=== PATIENT | female | born 1985 | race Caucasian/White ===

== ENCOUNTER 2017-09-30 01:37 | Outpatient (CLI) | payer BC | END 2017-09-30 01:38 | disposition critical access hospital (66) | LOC: EMS 01:37 | PROVIDERS: ATTEND Surgery | DX: O72.2 Delayed and secondary postpartum hemorrhage (principal) | CPT/HCPCS: A0425; A0429 ==

== ENCOUNTER 2017-09-30 02:10 | Day surgery (SDC) | payer BC ==
[2017-09-30 03:29] LABS: BASOPHILS % (AUTO) 0.4 %; EOSINOPHILS # (AUTO) 0.1 10^3/uL (0.0-0.7); EOSINOPHILS % (AUTO) 1.2 %; LYMPHOCYTES # (AUTO) 1.3 10^3/uL (1.5-3.5); LYMPHOCYTES % (AUTO) 14.4 %; MEAN CORPUSCULAR HEMOGLOBIN 30.5 pg (27.0-31.0); MEAN CORPUSCULAR HGB CONC 34.5 g/dL (32.0-36.0); MEAN CORPUSCULAR VOLUME 88.6 fL (81.0-99.0); MEAN PLATELET VOLUME 7.6 fL (7.9-10.8); MONOCYTES # (AUTO) 0.5 10^3/uL (0.0-1.0); NEUTROPHILS # (AUTO) 7.3 10^3/uL (1.5-6.6); PLT - PLATELET COUNT 391 10^3/uL (130-450); RED BLOOD COUNT 3.27 10^6/uL (4.20-5.40); RED CELL DISTRIBUTION WIDTH 16.4 % (12.0-15.0); WHITE BLOOD COUNT 9.3 x10^3/uL (4.8-10.8)
[2017-09-30 03:40] LABS: ALBUMIN 3.1 g/dL (3.2-5.5); ALBUMIN/GLOBULIN RATIO 0.9 (1.0-2.2); BILIRUBIN,TOTAL 0.4 mg/dL (0.2-1.0); CALCIUM 8.6 mg/dL (8.5-10.3); CREATININE 0.6 mg/dL (0.4-1.0); TOTAL PROTEIN 6.5 g/dL (6.7-8.2)
--- NOTE | 2017-09-30 03:49 | ED Physician Documentation ---
PD HPI FEMALE - Stated complaint Stated Complaint: FEM - Chief complaint Chief Complaint: General - History obtained from History obtained from: Patient, Family - History of Present Illness Timing - onset: Today Timing - details: Abrupt onset, Still present Associated symptoms: Pelvic pain, Vaginal bleeding Similar symptoms before: Work up / diagnostics Recently seen: Admitted - Additional information Additional information: patient is a 32 year old female who is presenting to the emergency department for vaginal bleeding. patient states that she had a child via vaginal delivery two weeks prior. At that time she had uterine prolapse and excessive bleeding. patient required 4 units blood transfusion. Patient states she went home after three days and was doing better but developed vaginal bleeding and clots so she came in for evaluation. 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 - Allergies Allergies/Adverse Reactions: Allergies Allergy/AdvReac Type Severity Reaction Status Date / Time No Known Drug Allergies Allergy Verified 09/30/17 02:29 - Social History Does the pt smoke?: No Smoking Status: Never smoker Does the pt drink ETOH?: Yes Does the pt have substance abuse?: No - Immunizations Immunizations are current?: Yes PD ED PE NORMAL - Vitals Vital signs reviewed: Yes - General General: Alert and oriented X 3, No acute distress - HEENT HEENT: Atraumatic - Cardiac Cardiac: RRR - Respiratory Respiratory: No respiratory distress - Abdomen Abdomen: Soft - Female Female : Deferred - Derm Derm: Normal color, Warm and dry - Extremities Extremities: No deformity - Neuro Neuro: Alert and oriented X 3 Eye Opening: Spontaneous Results - Vitals Vitals: Vital Signs - 24 hr 09/30/17 09/30/17 09/30/17 02:20 03:25 04:48 Heart Rate 89 86 89 Respiratory 21 21 16 Rate Blood Pressure 130/86 H 110/77 111/72 O2 Saturation 97 99 98 Oxygen O2 Source Room air - Labs Labs: Laboratory Tests 09/30/17 09/30/17 03:15 03:15 WBC 9.3 RBC 3.27 L Hgb 10.0 L Hct 29.0 L MCV 88.6 MCH 30.5 MCHC 34.5 RDW 16.4 H Plt Count 391 MPV 7.6 L Neut # (Auto) 7.3 H Lymph # (Auto) 1.3 L [place] # (Auto) 0.5 Eos # (Auto) 0.1 Baso # (Auto) 0.0 Absolute Nucleated RBC 0.00 Nucleated RBC % 0.0 Sodium 138 Potassium 3.7 Chloride 105 Carbon Dioxide 24 Anion Gap 9.0 BUN 11 Creatinine 0.6 Estimated GFR (MDRD) 116 Glucose 103 H Calcium 8.6 Total Bilirubin 0.4 AST 21 ALT 17 Alkaline Phosphatase 76 Total Protein 6.5 L Albumin 3.1 L Globulin 3.4 Albumin/Globulin Ratio 0.9 L Lipase 25 - Rads (name of study) pelvic ultrasound Radiology: Final report received (findings consistent ) PD MEDICAL DECISION MAKING - ED course Complexity details: reviewed old records, reviewed results, re-evaluated patient , considered differential, d/w patient, d/w collection systems consultant ED course: Patient was seen and examined at bedside. labs were drawn and imaging was ordered. when patient returned from imaging results were reviewed. patient was found to have retained products of conception. Dr. Jennings, program consultant OB was consulted and the case was discussed with her. She agreed to taking the patient to the OR. - Sepsis Event Vital Signs: Vital Signs - 24 hr 09/30/17 09/30/17 09/30/17 02:20 03:25 04:48 Heart Rate 89 86 89 Respiratory 21 21 16 Rate Blood Pressure 130/86 H 110/77 111/72 O2 Saturation 97 99 98 Oxygen O2 Source Room air Departure - Departure Disposition: ED Transfer to [facility] Clinical Impression: Retained products of conception Condition: Stable
--- NOTE | 2017-09-30 04:06 | Ultrasound Report ---
Procedure Date: 09/30/2017 Accession Number: [id number] / [id number] Procedure: US - Pelvic Complete CPT Code: FULL RESULT: EXAM: PELVIC ULTRASOUND EXAM DATE: 09/30/2017 03:37 AM. CLINICAL HISTORY: . Retained products of conception. COMPARISON: None. TECHNIQUE: Realtime transabdominal pelvic scan performed with static image documentation. FINDINGS: Uterus: 10.2 x 6.9 x 8.1 cm, volume 301 cc. Retroverted position. Enlarged uterus. Masses: None. Endometrium: Heterogeneous endometrial contents measuring approximately 5 x 3 cm. There is some vascular flow which may represent retained trophoblastic tissue. Cervix: Unremarkable. Right Ovary: 2.1 x 1.9 x 2.0 cm, volume 4.1 cc. Normal echotexture and blood flow. Left Ovary: 2.8 x 1.4 x 1.3 cm, volume 2.7 cc. Normal echotexture and blood flow. Free Fluid: None. Other: None. IMPRESSION: 1. Enlarged uterus measuring 301 cc. 2. Heterogeneous endometrial contents measuring approximately 5 x 3 cm with some areas of vascularity which may represent retained trophoblastic tissue. 3. Ovaries appear normal. RADIA
[2017-09-30] MEDS ORDERED: SODIUM CHLORIDE 0.9% 1,000 ML IV ONE (04:29)
--- NOTE | 2017-09-30 05:15 | ANESTHESIA ---
Pre-Anesthesia VS, & Labs - Diagnosis Retained products of conception - Procedure D&C Vital Signs: Temp Pulse Resp BP Pulse Ox 89 16 111/72 98 09/30/17 04:48 09/30/17 04:48 09/30/17 04:48 09/30/17 04:48 Height 5 ft 7 in Weight (kg) 68.039 kg Body Mass Index 23.5 - NPO >8 hours - Is Patient ?: Not Applicable (s/p post x2 weeks) - Lab Results Fish Bones: 09/30/17 03:15 09/30/17 03:15 Home Medications and Allergies Home Medications: Ambulatory Orders Medication Instructions Recorded Confirmed Evening [place] Oil 09/30/17 Pnv No.122/Iron/Folic Acid 1 each PO 09/30/17 [ Multi Tablet] Sennosides/Docusate Sodium [Stool 1 PO DAILY 09/30/17 Softener-Laxative Tablet] Allergies/Adverse Reactions: Allergies Allergy/AdvReac Type Severity Reaction Status Date / Time No Known Drug Allergies Allergy Verified 09/30/17 02:29 Anes History & Medical History - Anesthetic History Anesthesia Complications: reports: Post-Operative Nausea/Vomiting Family history of Anesthesia Complications: Denies Family history of Malignant Hyperthermia: Denies - Medical History Cardiovascular: reports: None Pulmonary: reports: None Gastrointestinal: reports: None Urinary: reports: None Neuro: reports: None Musculoskeletal: reports: None Endocrine/Autoimmune: reports: None Blood Disorders: reports: None Smoking Status: Never smoker Psychosocial: reports: No issues indicated - Surgical History Gynecologic: Other (uterine inversion) Exam General: Alert, Oriented x3, Cooperative, No acute distress Dental: WNL Mouth Openin Fingerbreadth Neck Mobility: Normal Mallampati classification: I Thyromental Distance: 4-6 cm Respiratory: Lungs clear, Normal breath sounds, No respiratory distress, No accessory muscle use Cardiovascular: Regular rate, Normal S1, Normal S2, No murmurs, Other ( tachycardic) Mental/Cognitive Status: Alert/Oriented X3, Normal for patient Cognitive Status: Within normal limits Plan Anesthesia Type: General Consent for Procedure(s) Verified and Reviewed: Yes Code Status: Attempt Resuscitation ASA classification: 1-Healthy patient Is this case an emergency?: Yes
[2017-09-30] MEDS ORDERED: ceFAZolin 2 GM/50 ML 2 GM/50 ML BAG IV ONE (05:40)
[2017-09-30] MEDS ORDERED: SCOPOLAMINE PATCH TOP ONE (05:40)
[2017-09-30] MEDS ORDERED: fentaNYL 100 MCG/2 ML VIAL IVP ONE ×2 (06:00→06:30)
[2017-09-30] MEDS ORDERED: ROCURONIUM 50 MG/5 ML VIAL IVP ONE ×2 (06:00→06:30)
[2017-09-30] MEDS ORDERED: KETOROLAC 30 MG/ML VIAL IVP ONE ×2 (06:00→06:30)
[2017-09-30] MEDS ORDERED: GLYCOPYRROLATE 1 MG/5 ML VIAL IVP ONE (06:00)
[2017-09-30] MEDS ORDERED: MIDAZOLAM 2 MG/2 ML VIAL IVP ONE ×2 (06:00→06:30)
[2017-09-30] MEDS ORDERED: PROPOFOL 200 MG/20 ML VIAL IVP ONE ×2 (06:00→06:30)
[2017-09-30] MEDS ORDERED: NEOSTIGMINE 1 MG/1 ML 10 ML MDV IVP ONE (06:00)
--- NOTE | 2017-09-30 06:03 | PREOP HISTORY & PHYSICAL ---
DATE OF SERVICE: 09/30/2017 Physician: Clarita Jennings DO FACOG IDENTIFICATION: This is a 32-year-old G2, P1-0-1-1, status post spontaneous vaginal delivery on 09/16/2017. HISTORY OF PRESENT ILLNESS: [facility] Loren. Patient stated that her was remarkable for having elevated bile acids of 10.5 at 36 weeks' gestation but eventually was told that she did not have cholestasis of . In any event, she was induced at 41 weeks 5 days for late term. She was given a transcervical Yeung balloon for cervical ripening and promptly dilated to 6 cm. She was given Pitocin and, within 24 hours, she delivered her daughter. She did not have an epidural, and the synthetic cloth binding cutter there repaired some tears. As she stated, she tore from her "top and bottom." When it came to delivery of the placenta, she stated the synthetic cloth binding cutter tugged on the placenta and then eventually tried to do a manual extraction. In any event, uterine inversion occurred, and she was taken to the operating room. The patient's understanding was that they reduced the uterus and did not do any surgery per se. She received two units of O blood in the operating room and after her reduction also received another two units of A positive blood for a total of four units. The patient was discharged home with Motrin 600 mg as well as Percocet 5 mg. The patient stated that she was doing well until yesterday, when she passed a "pinky sized" clot that had some tissue-looking component to it. She then got out of bed, when she gushed a significant amount of blood all the way to the bathroom. She also states that she soaked her pad on the bed. The bleeding worsened. She denied any fevers, chills, or difficulty with urination. The patient is currently here with her significant other. He is currently holding her daughter. I was called again by Dr. Delcid to see this patient. Pelvic ultrasound revealed the uterus measuring 10.2 x 6.9 x 8.1 cm, a volume of 301 mL, retroverted. Endometrium shows a heterogeneous endometrial contents measuring approximately 5 x 3 cm. There is some vascular flow, which may represent retained trophoblastic tissue. Adnexa are all within normal limits, and there is no free fluid. Her hemoglobin is reassuring at 10.0. I discussed with the patient, given her clinical situation, that we proceed to a suction dilatation and curettage. I did have discussion with the patient regarding the risks, benefits, alternatives, indications, and expectations of a suction dilatation and curettage. Included in our discussion was the risk of hemorrhage, infection, and in particularly this case, uterine perforation. After all of her questions were answered to her satisfaction, she verbalized her desire to proceed with surgery. Consent forms have been signed. PAST MEDICAL HISTORY: None. She denies hypertension, diabetes, or thyroid disorder. PAST SURGICAL HISTORY 1. [place] teeth extraction. 2. Reduction of uterine inversion on 09/16/2017. ALLERGIES: NO KNOWN DRUG ALLERGIES. MEDICATIONS: vitamins and other supplements. SOCIAL HISTORY: She denies any current use of tobacco, alcohol, or illicit drug use. 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 Again, she uses [facility] in [place], [place] as her pharmacy. PAST OBSTETRICAL HISTORY 1. One spontaneous at 5 weeks' gestation. 2. One spontaneous vaginal delivery on 09/16/2017 with induction secondary to late term. She is currently . PAST GYNECOLOGICAL HISTORY: She had a colposcopy 10 years ago but since then has spontaneously resolved. She has a history of HSV but denies any outbreaks. FAMILY HISTORY: There is no female carcinoma. REVIEW OF SYSTEMS: Negative unless otherwise stated. PHYSICAL EXAMINATION VITAL SIGNS: Pulse 86, respirations 21, BP 110/77, pulse oximetry 99. She is currently afebrile. GENERAL: She is a well-developed, well-nourished female, in no apparent distress. She is alert and oriented x3. HEENT: Within normal limits. HEART: Rate regular. No murmurs or rubs. LUNGS: Lungs are clear to auscultation bilaterally. ABDOMEN: Shows mild tenderness to palpation, but no peritoneal signs. LABORATORY: Data show white count 9.3, H and H of 10.0 and 29.0, platelets 391. Sodium 138, potassium 3.7, chloride 105, carbon dioxide 24, BUN 11, creatinine 0.6, glucose 103. AST 21, ALT 17, albumin 3.1. Lipase 25. ASSESSMENT 1. A 32-year-old G2, P1-0-1-1. 2. Status post spontaneous vaginal delivery on 09/16/2017. 3. Status post reduction of uterine inversion on 09/16/2017. 4. Status post total of four units of packed red blood cells transfused. 5. Retained products of conception. PLAN 1. We will proceed to a suction dilatation and curettage. 2. Anticipate giving the patient Ancef 2 grams IV for endometritis prophylaxis. 3. Anticipate the patient also to home with a prescription of Methergine and Vicodin. I have discussed with her maximizing her pain control with Motrin 800 mg one tablet p.o. q.6 h. Ideally, she should use Tylenol 1000 mg q.8 h. I will give her a prescription of Vicodin; should she take Vicodin, she should decrease her other Tylenol since the Vicodin does contain Tylenol. 4. I anticipate seeing the patient at [facility] for a routine postoperative check in two weeks. TD: 09/30/2017 05:35 MIRA
[2017-09-30] MEDS ORDERED: LACTATED RINGERS 1,000 ML IV ONE ×2 (06:13)
[2017-09-30] MEDS ORDERED: miSOPROStol 200 MCG TABLET PR ONE (06:18)
[2017-09-30] MEDS ORDERED: DEXAMETHASONE 4 MG/ML VIAL IVP ONE (06:30)
[2017-09-30] MEDS ORDERED: ACETAMINOPHEN 1,000 MG/100 ML 100 ML IV ONE (06:30)
[2017-09-30] MEDS ORDERED: ONDANSETRON 4 MG/2 ML VIAL IVP ONE (06:30)
[2017-09-30] MEDS ORDERED: miSOPROStol 200 MCG TABLET PO ONE (06:30)
[2017-09-30] MEDS ORDERED: ONDANSETRON 4 MG/2 ML VIAL ONE (06:35)
--- NOTE | 2017-09-30 06:39 | POST OP PROGRESS NOTE ---
Subjective - Other Other Information/Narrative: Date of Operation: 09/30/2017 Surgeon: Clarita Jennings DO FACOG Rug Inspector Helper: None Thermal Cutting Machine Operator: Martha Mravin CRNA Anesthesia: GET Pre-Op Dx: 1. 32 yo S/p 09/16/2017 and reduction of uterine inversion 2. Retained products of conception Post-Op Dx: 1. 32 yo S/p 09/16/2017 and reduction of uterine inversion 2. Retained products of conception Procedure: Suction dilation and curettage Findings: Products of conception Specimens: Endometrial curettings Drains: None EBL: 600 mL Complications: None OP Note Dictation #: [id number] H&P Dictation #: [id number]
[2017-09-30 07:14] VITALS: BP 108/60
--- NOTE | 2017-09-30 10:01 | OPERATIVE REPORT ---
DATE OF OPERATION: 09/30/2017 SURGEON: Clarita Jennings DO, FACOG REMOTE ENCODING OPERATIONS SUPERVISOR: None. TURNING LATHE TENDER: Martha Marvin CRNA ANESTHESIA: General endotracheal tube. PREOPERATIVE DIAGNOSES 1. A 32-year-old G2, P1-0-1-1, status post 09/16/2017 spontaneous vaginal delivery and reduction of uterine inversion. 2. Retained products of conception. POSTOPERATIVE DIAGNOSES 1. A 32-year-old G2, P1-0-1-1, status post 09/16/2017 spontaneous vaginal delivery and reduction of uterine inversion. 2. Retained products of conception. PROCEDURE: Suction dilatation and curettage. FINDINGS: Products of conception as well as a Monocryl suture on the medial labia minora at 11 o'clock as well as a Vicryl suture at 6 o'clock. Normally involuting uterus. Positive products of conception on suction dilatation, and curettage. PROCEDURE: Suction dilatation and curettage. FINDINGS: Products of conception and normal changes. SPECIMENS: Endometrial curettings. DRAINS: None. ESTIMATED BLOOD LOSS: 600 mL COMPLICATIONS: None. HISTORY OF PRESENT ILLNESS: She is a patient of [facility] who delivered a 41 and 5/7-week intrauterine on 09/16/2017. She was induced for late term at 41 weeks and 5 days. She received a transcervical Yeung balloon ripening and then Pitocin. She delivered within 24 hours and went without an epidural for pain control. The patient reports she had some tearing. The placenta sounds like it was difficult to deliver and the lidar scientist pulled on the umbilical cord. Unfortunately, there was a uterine inversion in which she and had to undergo a uterine reduction in the operating room. She does not recall being told of any giana surgery, per se, on the uterus or abdominal wall. She reports she was given 2 units of O blood in the operating room and then 2 units of A-positive during her postoperative period. The patient recently started having increased vaginal bleeding. It is described as bright red blood and a large amount of blood having passed. She passed a pinky-sized amount of tissue. She denies any fevers, chills, or difficulty with urination. Workup revealed she had a stable hemoglobin at 10.0. Ultrasound, however, revealed a 5-cm collection of what appeared to be products of conception. Given the patient's clinical picture, I recommended her to undergo a suction dilatation and curettage for retained products of conception. I discussed with the patient the risks, benefits, alternatives, indications, and expectations of a suction dilatation and curettage. Included in our discussion was the risk of hemorrhage, infection, and uterine perforation. After all of the patient's questions were answered to her satisfaction, she verbalized her desire to proceed with surgery. Consent forms have been signed. OPERATION IN DETAIL: The patient was identified, consented, and taken to the operating room where IV access was already in place. She was then given sequential compression devices, which were placed on her lower extremities and turned on. She was then given satisfactory general endotracheal tube anesthesia as per Martha Marvin. She was given 2 grams of Ancef IV for prophylaxis of postoperative endometritis. The patient was prepped and draped in normal sterile fashion in the lithotomy position using the [place] stirrups. Timeout was performed, which correctly identified the patient, site of procedure, and the procedure itself. An open-sided speculum was placed in the vagina. A single-tooth tenaculum was placed on the anterior lip of the cervix. The cervix was dilated to 9 mm. A curved, 9 mm, rigid suction curette was then used to curette the endometrium. Products of conception were seen. The curettage continued until a satisfactory uterine cri was palpated throughout the endometrium and no bleeding was noted from the cervix. It is noted that 2 suction traps were needed to be used for this procedure. Closer inspection of the vulva revealed a single Monocryl stitch at the 11 o'clock location on the vulva. There was also an 0 Vicryl suture at the 6 o'clock position of the introitus. At the conclusion of the case, 800 mcg of Cytotec was placed per rectum in order to help maintain hemostasis. The patient tolerated the procedure well and was taken back to the recovery room in stable condition. We will go ahead and recheck her hemoglobin and hematocrit given her large EBL. She will be discharged home later today after postoperative criteria have been met. The patient will be going home with prescriptions of Methergine x2 days as well as Vicodin and Motrin. Written instructions for taking the Motrin, Tylenol, and Vicodin have been written for her. She will be seen at [facility] [place] [facility] in 2 weeks for routine postoperative examination. TD: 09/30/2017 06:50 MTDMaryana
== END 2017-09-30 05:09 | disposition home or self-care (01) ==
LOC: EDUNIT# → ED 02:10 → SDS 05:08
PROVIDERS: ATTEND Obstetrics & Gynecology
PROC: 10D17ZZ Extraction of Products of Conception, Retained, Via Natural or Artificial Opening (ICD-10-PCS; principal; 2017-09-30 05:45)
DX: O72.2 Delayed and secondary postpartum hemorrhage (principal); Z86.19 Personal history of other infectious and parasitic diseases
CPT/HCPCS: 36415; 59160; 76856; 80053; 83690; 85014; 85018; 85025; 86850; 86900; 86901; 99283; 99284; A9270; J0131; J0690; J3490; J7120

== ENCOUNTER 2018-12-31 07:15 | Emergency (ER) | payer BC ==
[2018-12-31 07:25] VITALS: BP 119/83
[2018-12-31] MEDS ORDERED: DEXAMETHASONE 10 MG/ML VIAL PO STA (10:03)
[2018-12-31] MEDS ORDERED: CHERRY SYRUP 10 ML UDC PO ONE (10:03)
--- NOTE | 2018-12-31 10:06 | ED Physician Documentation ---
PD HPI URI - Stated complaint Stated Complaint: FLU SYMPTOMS - Chief complaint Chief Complaint: Fever - History obtained from History obtained from: Patient - History of Present Illness Timing - onset: How many weeks ago (1) Timing duration: Weeks Timing details: Gradual onset, Still present Associated symptoms: Fever, Chills, Ear pain, Nasal congestion, Rhinorrhea, Sore throat, Dry cough, Other (loss of voice and conjunctivitis) Contributing factors: Sick contact (daughter sick with similar has responded to amox for OM) Improves by: Rest, Medication, Other (hot shower for the sinuses) Worsened by: Activity Similar symptoms before: Has not had sx before Recently seen: Not recently seen - Additional information Additional information: 33-year-old female mother of a young daughter has developed cough and congestion similar to her daughter her daughter is been diagnosed with right otitis and is improved after amoxicillin. She improved rapidly after starting the antibiotic. The patient has developed cough congestion she is lost her voice she is developed conjunctivitis this morning she had to get into the shower to get her eyes open. They were crusted shut. Review of Systems Constitutional: reports: Fever Eyes: reports: Discharge, Irritation. denies: Decreased vision Ears: reports: Ear pain Nose: reports: Rhinorrhea / runny nose, Congestion Throat: reports: Sore throat Cardiac: denies: Chest pain / pressure, Palpitations Respiratory: reports: Cough. denies: Dyspnea GI: reports: Nausea. 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 - Present Medications Home Medications: Ambulatory Orders Medication Instructions Recorded Confirmed Evening [place] Oil 09/30/17 No122/Iron/Folic Acid 1 each PO 09/30/17 [ Multi Tablet] Sennosides/Docusate Sodium [Stool 1 PO DAILY 09/30/17 Softener-Laxative Tablet] Amox/Clav 875/125 [Augmentin] 1 each PO Q12H #20 tablet 12/31/18 - Allergies Allergies/Adverse Reactions: Allergies Allergy/AdvReac Type Severity Reaction Status Date / Time No Known Drug Allergies Allergy Verified 09/30/17 02:29 - Social History Does the pt smoke?: No Smoking Status: Never smoker Does the pt drink ETOH?: Yes Does the pt have substance abuse?: No - Immunizations Immunizations are current?: Yes PD ED PE NORMAL - Vitals Vital signs reviewed: Yes (hypertensive mild ) - General General: Alert and oriented X 3, No acute distress, Well developed/nourished - HEENT HEENT: Atraumatic, PERRL, EOMI, Pharynx benign, Dentition benign, Other (There is injection to the sclera bilaterally and there is inflamation to the left TM with distortion of the landmarks. ) - Neck Neck: Supple, no meningeal sign, No bony TTP, Other (shoddy adenopathy bilaterally ) - Cardiac Cardiac: RRR, No murmur - Respiratory Respiratory: No respiratory distress, Clear bilaterally - Abdomen Abdomen: Soft, Non tender, Non distended - Back Back: No CVA TTP, No spinal TTP - Derm Derm: Normal color, Warm and dry, No rash - Extremities Extremities: No deformity, No edema - Neuro Neuro: Alert and oriented X 3, board hammer operator 2-12 intact, No motor deficit, No sensory deficit, Normal speech Eye Opening: Spontaneous Motor: Obeys Commands Verbal: Oriented GCS Score: 15 - Psych Psych: Normal mood, Normal affect Results - Vitals Vitals: Vital Signs - 24 hr 12/31/18 07:21 Temperature 36.7 C Heart Rate 98 Respiratory 17 Rate Blood Pressure 119/83 H O2 Saturation 100 Oxygen O2 Source Room air - Labs Labs: Laboratory Tests 12/31/18 12/31/18 09:37 09:37 Influenza A (Rapid) Negative Influenza B (Rapid) Negative Group A Strep Rapid Negative PD MEDICAL DECISION MAKING - ED course Complexity details: reviewed results, re-evaluated patient, considered differential, d/w patient ED course: 33-year-old female with cough and congestion has otitis on exam she has a negative rapid strep and influenza. She is treated for otitis with dexamethasone 10 mg orally here and we will place her on some Augmentin. Departure - Departure Disposition: 01 Home, Self Care Clinical Impression: Viral URI Otitis media Qualifiers: Otitis media type: suppurative Chronicity: acute Laterality: left Recurrence: non-recurrent Spontaneous tympanic membrane rupture: without spontaneous rupture Qualified Code(s): H66.002 - Acute suppurative otitis media without spontaneous rupture of ear drum, left ear Condition: Stable Instructions: ED Otitis Media Acute Adult, ED Viral Syndrome Follow-Up: [facility] [Provider Group] Prescriptions: Amox/Clav 875/125 [Augmentin] 1 each PO Q12H #20 tablet
== END 2018-12-31 10:15 | disposition home or self-care (01) ==
LOC: ED 07:15
DX: J06.9 Acute upper respiratory infection, unspecified (principal); H66.002 Acute suppurative otitis media without spontaneous rupture of ear drum, left ear
CPT/HCPCS: 87070; 87077; 87275; 87276; 87430; 99283; 99284; A9270

== ENCOUNTER 2019-10-30 07:14 | Outpatient (CLI) | payer BC ==
--- NOTE | 2019-10-30 10:25 | Ultrasound Report ---
PROCEDURE: OB Detailed Eval INDICATIONS: SUPERVISION OF NORMAL OUTSIDE/PRIOR DATING DATA: Last menstrual period (LMP): 06/16/2019. LMP-based estimated date of delivery (JESUS): 03/22/2020. First dating scan (date and location): 07/28/2019. Estimated date of delivery (JESUS) from first dating scan: Unknown. TECHNIQUE: Real-time scanning was performed of the fetus, with image documentation and biometric measurements. COMPARISON: None. FINDINGS: General: A single living intrauterine gestation is present. Presentation: Breech Placenta: Placental position is posterior, without previa. Amniotic fluid index: 14.1 cm, normal for gestational age. heart rate: 136 beats per minute. Maternal cervical canal: 4.0 cm long; normal length is 2.5 cm or more. biometrics: Biparietal diameter: 4.16 cm, corresponding to gestational age of 18 weeks 4 days Head circumference: 15.39 cm, corresponding to gestational age of 18 weeks 3 days Abdominal circumference: 14.01 cm, corresponding to a gestational age of 19 weeks 3 days Femur length: 2.89 cm, corresponding to a gestational age of 18 weeks 6 days Estimated gestational age from initial scan: not applicable. Composite gestational age from present scan: 18 weeks 6 days Estimated weight: 273 g Anatomic survey: Neuro: Ventricles are normal at less than 10 mm. Cisterna magna is normal at 3-11 mm. Cerebellum i s normal in size and morphology. Nuchal skin fold: Normal at less than 6 mm between 14 and 20 weeks gestational age. Face: Nose and lips, facial profile are normal. Spine: No evidence for spina bifida. Heart: 4-chambered heart is present, with normal ventricular outflow tracts. Diaphragm: Diaphragm is intact. Stomach: Left-sided stomach is present. Kidneys: No hydronephrosis. Normal is less than 5 mm in 2nd trimester, less than 7 mm in 3rd trimester. Cord: 3 vessel cord has orthotopic insertion. Bladder: Normal in size. Extremities: All 4 extremities are visualized. IMPRESSION: Normal anatomy scan. Resolution of small subchorionic hemorrhage seen on the prior study. Reviewed by: Yakov Tavares MD on 10/30/2019 10:24 AM PDT Approved by: Yakov Tavares MD on 10/30/2019 10:24 AM PDT Station ID: [id number]
== END 2019-10-30 07:15 | disposition home or self-care (01) ==
LOC: DI 07:14
PROVIDERS: ATTEND Obstetrics & Gynecology
DX: Z34.80 Encounter for supervision of other normal pregnancy, unspecified trimester (principal)
CPT/HCPCS: 76811

== ENCOUNTER 2020-02-05 15:21 | Outpatient (CLI) | payer BC ==
[2020-02-05 15:54] LABS: ALBUMIN 3.5 g/dL (3.2-5.5); ALBUMIN/GLOBULIN RATIO 1.1 (1.0-2.2); ALKALINE PHOSPHATASE 97 IU/L (42-121); ALT ALANINE AMINOTRANSFERASE 13 IU/L (10-60); AST ASPARTATE AMINOTRANSFERASE 20 IU/L (10-42); BILIRUBIN,TOTAL 0.6 mg/dL (0.2-1.0); BUN - BLOOD UREA NITROGEN 7 mg/dL (6-20); CALCIUM 8.9 mg/dL (8.5-10.3); CARBON DIOXIDE - CO2 21 mmol/L (21-32); CHLORIDE 101 mmol/L (101-111); CREATININE 0.4 mg/dL (0.4-1.0); GLUCOSE 85 mg/dL (70-100); SODIUM 134 mmol/L (135-145); TOTAL PROTEIN 6.7 g/dL (6.7-8.2)
[2020-02-05 16:02] LABS: BILIRUBIN,DIRECT < 0.1 mg/dL (0.1-0.5)
== END 2020-02-05 15:22 | disposition home or self-care (01) ==
LOC: LAB 15:21
PROVIDERS: ATTEND Midwife
DX: O26.899 Other specified pregnancy related conditions, unspecified trimester (principal)
CPT/HCPCS: 36415; 80053; 82239; 82248

== ENCOUNTER 2020-02-05 15:46 | Outpatient (CLI) | payer BC ==
--- NOTE | 2020-02-06 13:14 | Ultrasound Report ---
PROCEDURE: Abdomen Limited INDICATIONS: WITH RUQ PAIN TECHNIQUE: Real-time focused scanning was performed of the abdomen, with image documentation. COMPARISON: FINDINGS: Limited study at clinician request. The liver is normal in size and echotexture. Normal di rection of portal vein flow is documented. The gallbladder appears normal as do the bile ducts. The p ancreas could not be seen due to bowel gas. Right kidney is normal in size and free of hydronephrosis and nephrolithiasis. Viable fetus identified with heart rate 131 bpm. IMPRESSION: Viable intrauterine gestation. Source of right upper quadrant pain is not found. Reviewed by: Aiden Turner MD on 02/06/2020 1:12 PM PST Approved by: Aiden Turner MD on 02/06/2020 1:12 PM PST Station ID: [id number]
== END 2020-02-05 15:47 | disposition home or self-care (01) ==
LOC: DI 15:46
PROVIDERS: ATTEND Midwife
DX: O99.891 Other specified diseases and conditions complicating pregnancy (principal); R10.11 Right upper quadrant pain

== ENCOUNTER 2020-03-06 09:07 | Outpatient (CLI) | payer BC ==
[2020-03-06] MEDS ORDERED: SODIUM CHLORIDE FLUSH 0.9% 10 ML SYRINGE IVP PRN ×2 (09:18→10:06)
[2020-03-06 09:43] VITALS: BP 131/77
[2020-03-06] MEDS ORDERED: ONDANSETRON 4 MG/2 ML VIAL IVP ONE (10:06)
[2020-03-06] MEDS ORDERED: TERBUTALINE 1 MG/ML VIAL SUBQ ONE (10:06)
[2020-03-06] MEDS ORDERED: MINERAL OIL LIGHT 10 ML MC ONE (10:09)
--- NOTE | 2020-03-06 12:17 | HISTORY & PHYSICAL EXAMINATION ---
HPI - Admitted From Admitted from: Direct admit - History of Present Illness HPI Comment/Other: Patient is a 34 yo at 37+5 wga with fetus in breech presentation. Patient had initially been seen at Located within [facility] with a prior history complicated by history of uterine inversion post delivery with PPH and transfusion. Also had cholestasis. She had transferred care to [facility] in anticipation of a home . At her last assessment with her hr coordinator, she was found to have a fetus in breech presentation. She presents today for external cephalic version. Endorses FM. Denies LOF/VB/CTX. DATING: LMP 06/16/2019 --> JESUS of 2020. US on 07/28/2019 that showed a GS within the uterus c/w 6 weeks 1 day and a yolk sac with no pole was identified. cwd 03/22/20 Bedside US today (09/11/2019) shows viable IUP measuring 5.38 cm c/w 12w0 d gives JESUS 03/25/20, cwd. Patient has declined fu with formal US Declined GCCT/MUDS A pos/ The patient declines genetic testing after discussing all available options. FAS at 18 to 20 weeks. Tdap at 28 weeks. Glucola at 28 weeks. HSV:valacyclovir at 36 weeks. GBS at 36 weeks. We will obtain outside records from [place] given complicated delivery. 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 D&C. Ideal teeth removal. 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 Working on her doctorate in philosophy at [employer] Denies JOHNNY Safe at home Meds/Allgy - Home Medications Home Medications: Ambulatory Orders Medication Instructions Recorded Confirmed Evening [place] Oil 09/30/17 No122/Iron/Folic Acid 1 each PO 09/30/17 [ Multi Tablet] Sennosides/Docusate Sodium [Stool 1 PO DAILY 09/30/17 Softener-Laxative Tablet] Amox/Clav 875/125 [Augmentin] 1 each PO Q12H #20 tablet 12/31/18 - Allergies Allergies/Adverse Reactions: Allergies Allergy/AdvReac Type Severity Reaction Status Date / Time No Known Drug Allergies Allergy Verified 09/30/17 02:29 Review of Systems - Other Findings Other Findings: Feeling some stomach discomfort and nausea attributed to nervousness Exam - Vital Signs Reviewed Vital Signs: Yes Vital Signs: Vital Signs x48h Temp Pulse Resp BP Pulse Ox 03/06/20 09:41 97.7 F 95 18 131/77 H 100 - Physical Exam General Appearance: positive: No acute distress Neck: positive: Nml inspection Respiratory: positive: No respiratory distress Cardiovascular: positive: Regular rate & rhythm Abdomen: positive: Non-tender, Other (gravis, S&NT/ND) Skin: positive: Color nml Neurologic/Psychiatric: positive: Oriented x3 Comments/Other: Bedsude us shows ADITHYA 11.07 and head at maternal left, breech Impression/Plan - Problem List Problem List: BREECH PRESENTATION AT 37+5 wga: Reviewed risks/benefits/alternatives to ECV These include but are not limited to abruption, PROM, terminal bradycardia All of these complications could lead to emergency CS risks were reviewed and include, but are not limited to, bleeding, infection, damage to nearby tissue and organs. Written informed consent was obtained. Preprocedure NST : EFM 130 mod chung 15x15 accels no decels TOCO: quiet Cat I tracing
--- NOTE | 2020-03-06 12:30 | OPERATIVE REPORT ---
Operative Report - General Procedure Date: 03/06/20 Planned Procedure: External cephalic version with possible emergent/urgent Pre-Op Diagnosis: IUP at 37+5 wga, fetus in breech presentation Procedure Performed: External cephalic version- unsuccessful Post Op Diagnosis: Same - Procedure Note Primary Surgeon: Melissa Pimentel MD Pathology: none IV Fluids (mL): 0 Estimated Blood Loss (mL): 0 Urine Output (mL): 0 Indications: Patient is a 34 yo at 37+5 wga here with fetus in breech presentation desiring external cephalic version. Findings: Fetus in breech presentation with head at maternal left. ADITHYA 11.07 CAT I tracing with baseline 130 mod chung 15x15 accels no decels head at maternal midline vs slightly to maternal right at close of procedure, persistent breech presentation Complications: None - Other Other Information/Narrative: Risks/benefits/alternatives to external cephalic version and possibly subsequent emergent were reviewed. Written, informed consent was obtained. NST was obtained and showed a category I tracing. Bedside us confirmed position and adequate ADITHYA. IV was placed and patient received terbutaline 0.25 mg SQ x1. Mineral oil was applied to the abdomen. The breech was disengaged from the pelvis with gentle manual pressure. The head was gently pushed into a forward somersault, moving the head into vertex presentation. position abruptly pulled back intop breech presentation. The same maneuver was attempted with a backwards somersault motion. Again, head moved into vertex position, and then snapped back into breech presentation. This was repeated on both sides to attempt to maintain persistent vertex presentation. The vertex positioning could not be maintained in any attempts. heart rate was checked periodically throughout the maneuvers and remained appropriate throughout the procedure. At close of procedure, head was maintained slightly right of the maternal midline but breech presentation was maintained. Procedure was well tolerated and without complication. Post procedure EFM showed Cat I tracing for one hour of observation post procedure and minimal to no activity was noted on tocometry. Patient was discharged to home with plan to follow-up in clinic for delivery planning for .
== END 2020-03-06 12:10 | disposition home or self-care (01) ==
LOC: WFO 09:07 → FBP 09:10 → WFO 12:10
PROVIDERS: ATTEND Obstetrics & Gynecology
DX: O32.1XX0 Maternal care for breech presentation, not applicable or unspecified (principal); Z3A.37 37 weeks gestation of pregnancy; O09.899 Supervision of other high risk pregnancies, unspecified trimester
CPT/HCPCS: 59025; 96372; 96374

== ENCOUNTER 2020-03-12 08:00 | Outpatient (CLI) | payer BC | END 2020-03-12 23:59 | disposition home or self-care (01) | LOC: LAB 08:00 | PROVIDERS: ATTEND Obstetrics & Gynecology | DX: Z01.812 Encounter for preprocedural laboratory examination (principal); O32.1XX0 Maternal care for breech presentation, not applicable or unspecified; Z20.822 Contact with and (suspected) exposure to COVID-19 ==

== ENCOUNTER 2020-03-18 05:32 | Inpatient (IN) | payer BC ==
--- NOTE | 2020-03-17 21:33 | HISTORY & PHYSICAL EXAMINATION ---
HPI - History of Present Illness HPI Comment/Other: The patient is a 34-year-old at 39+3 wga here for preoperative assessment for , Her last menstrual period was 06/16/2019 which gives an JESUS of 2020. She had an ultrasound on 07/28/2019 that showed a gestational sac within the uterus consistent with 6 weeks 1 day and a yolk sac with no pole was identified. Additional imaging was declined. She had received PNC at [facility] until about 12 weeks and then transferred to [facility]. Her past delivery was notable for a uterine inversion with concomitant hemorrhage and transfusion. She later required a D&C about 2 weeks later for retained POCs. Also had 3rd degree laceration. There was considerable discussion with recurrence risk and safety of a homebirth given this history. In the midst of this discussion, she was found to have fetus in breech presenta tion. She underwent an attempt at ECV, which resulted in successful turning of the baby to vertex. Unfortunately, position could not be sustained and she remains in breech presentation. For this reason, she will be proceeding with . She has significant trauma from her prior delivery. [facility] records were reviewed. Unfortunately, lab work was not included in the documentation. Also with hx of HSV, unclear if ppx is in place. Allergies: No Known Allergies Medications: PRE-SEPIDEH FORMULA ORAL TABLET ( [id number]) Take one tablet by mouth once a day; Route: ORAL Problems: Preop exam (ICD-V72.84) (UIH77-B00.818) Breech presentation (ICD-652.20) (RZZ75-B51.1xx0) Hemorrhoids (ICD-455.6) (MKN40-V47.9) Supervision of normal multigravida , unspecified trimester (ICD-V22.1) (LFQ22-D95.80) screening,other specified (ICD-V28.8) (OEW77-O10.89) Blood transfusion, without reported diagnosis (ICD-V58.2) (NRB05-J82.89) Attention deficit hyperactivity disorder, adult (ICD-314.01) (MOA10-J66.1) Preventive care exam (ICD-V70.0) (ZIQ23-O62.00) Umbilical hernia (ICD-553.1) (PCH11-B24.9) Diastasis recti (ICD-728.84) (PMY32-N84.08) [Family History-CCC] Risk Factors: Smoked Tobacco Use: Never smoker Smokeless Tobacco Use: Former Passive Smoke Exposure: no HIV High Risk Behavior: no Caffeine Use: 2 drinks per day Exercise: no Seatbelt Use: 100 % Sun Exposure: occasionally Alcohol Use: no Drug Use: no Vital Signs: Patient Profile: 34 Years Old Female Height: 67 inches Weight: 181 pounds BMI: 28.45 BP sittin / 91 Cuff size: regular Vitals Entered By: CARMEN Valladares (March 12, 2020 8:58 AM) Meds Reviewed: Done Allergies Reviewed: Done No known allergies: T Serial Vital Signs/Assessments: Time Position BP Pulse Resp Temp By 9:30 AM 123/78 CARMEN Valladares Questionnaire Would you like to become in the next year? NA Currently Past Medical History: History of blood transfusion. Uterine inversion at delivery. No unusual childhood illnesses. Past Surgical History: Ruptured ovarian cyst managed with observation, wisdom teeth removal, dilation and curettage. D&C for bleeding Flowsheet View for Follow-up Visit Estimated weeks of gestation: 38 4/7 Weight: 181 Blood pressure: 123 / 91 Fundal height: 38 FHR: 125 Vaginal bleeding: no Vaginal discharge: no activity: yes Labor symptoms: no position: breech Next visit: 1 wk Comment: Presents for preop assessment for CS Confirmed baby remains in breech presentation Will re-confirm on morning of procedure Reviewed [place] notes. Labs are not included. IMPORT MANAGER Review of Systems ROS Comments: As per HPI, otherwise remaining systems are negative. Physical Constitutional: GEN: NAD HEAD: NCAT EYES: No scleral icterus or conjunctival injection NECK: No cervical LAD or TM CV: RRR RESP: CTAB, normal effort ABD: S&NT/ND PSYCH: appropriate affect NEURO: alert and oriented, normal gait and coordination EXT: WWP Impression & Recommendations: Problem # 1: Preop exam (ICD-V72.84) (ERG00-A08.818) Reviewed risks/benefits/alternatives to and BTL Risks include, but are not limited to, bleeding, infection, damage to neatby tissue and organs. On average, EBL of up to 1 liter is considered within normal limits for CS. Risks of blood transfusion include infection Risk of HIV 1/2million nationwide Risk of Hepatitis 1/1 million Risks of transfusion reaction Infection risk moderate given clean/contaminated nature of procedure and IV antibiotics will be given. Damage to nearby tissue and organs including bladder, bowel, ureters, blood vessels, nerves, and fetus Damage may be noted intra-op and may be delayed until after the procedure is complete Reviewed management of complications and efforts to avoid such outcomes but reviewed that they may occur despite our best efforts Confirmed that sterlization is desired Patient understands that tubal ligation is an irreversible process that will result in future infertility Written informed consent obtained. Problem # 2: Supervision of normal multigravida , unspecified trimester (ICD-V22.1) (PRT38-U88.80) Orders: PRE OP -[id number] (CPT-19147) 0502F - SUBSEQUENT VISIT (CPT-0502F) Reviewed [facility] Records No signifcant alterations in care Labs are not available. No record of labs within system. Glucola noted to be completed but no statement of status Hx of HSV, not clear if on ppx. Did not address during visit. Planning on CS. DATING: LMP 06/16/2019 --> JESUS of 2020. US on 07/28/2019 that showed a GS within the uterus c/w 6 weeks 1 day and a yolk sac with no pole was identified. cwd 03/22/20 Bedside US today (09/11/2019) shows viable IUP measuring 5.38 cm c/w 12w0 d gives JESUS 03/25/20, cwd. Patient has declined fu with formal US Declined GCCT/MUDS A pos/Rub unknown The patient declines genetic testing after discussing all available options. FAS: FAS wnl, posterior placenta 3VC, EFW 278g, no %ile given Tdap at 28 weeks-unclear if completed Glucola: Completed; results not known HSV:valacyclovir at 36 weeks (TBA). GBS: UNKNOWN Mode of delivery: CS for BREECH Patient Portal: [id number] P: 1 T: 1 A: 1 SAB: 1 L: 1 LMP: 06/16/2019 EDC: 03/22/2020 EDC by Ultrasound: 03/25/2020 Height: 67 (12/20/2019 10:03:25 AM) Weight: 181 Initial US done: Normal (09/11/2019 10:21:41 AM) US: 18W 6D (10/30/2019 2:29:47 PM) Blood Type: A+ (01/04/2017 10:21:57 AM) RH Type: pos (01/04/2017 10:22:07 AM) Is pt sexualy active? 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: positive: Other Social & Family Hx - Social History Does the pt smoke?: No Smoking Status: Never smoker Does the pt drink ETOH?: Yes Does the pt have substance abuse?: No Meds/Allgy - Home Medications Home Medications: Ambulatory Orders Medication Instructions Recorded Confirmed Evening [place] Oil 09/30/17 No122/Iron/Folic Acid 1 each PO 09/30/17 [ Multi Tablet] Sennosides/Docusate Sodium [Stool 1 PO DAILY 09/30/17 Softener-Laxative Tablet] Amox/Clav 875/125 [Augmentin] 1 each PO Q12H #20 tablet 12/31/18 - Allergies Allergies/Adverse Reactions: Allergies Allergy/AdvReac Type Severity Reaction Status Date / Time No Known Drug Allergies Allergy Verified 09/30/17 02:29 Review of Systems - Other Findings Other Findings: As per HPI, otherwise remaining systems are negative.
[~2020-03-18 05:32] MED LIST: CARBOPROST TROMETHAMINE 250 MCG/ML AMP IM PRN; LABETALOL 20 MG/4 ML SYRINGE IVP PRN; LACTATED RINGERS 1,000 ML IV SCH; LIDOCAINE-MPF 1% 30 ML VIAL ID PRN; METHYLERGONOVINE 0.2 MG/ML VIAL IM PRN; NIFEdipine 10 MG CAPSULE PO PRN; ONDANSETRON 4 MG/2 ML VIAL IVP PRN; OXYTOCIN 10 UNIT/ML VIAL IM PRN; OXYTOCIN/SODIUM CHLORIDE 500 ML IV PRN; SODIUM CHLORIDE FLUSH 0.9% 10 ML SYRINGE IVP PRN; SODIUM CHLORIDE FLUSH 0.9% 10 ML SYRINGE IVP SCH; TRANEXAMIC ACID IN NACL 1,000 MG/100 ML BAG IV PRN; hydrALAZINE INJ 20 MG/ML VIAL IVP PRN; miSOPROStoL 200 MCG TABLET BC PRN
[2020-03-18] MEDS ORDERED: TRANEXAMIC ACID 1,000 MG in SODIUM CHLORIDE 0.9% 100ML 100 ML IV PRN (06:00)
[2020-03-18] MEDS ORDERED: METHYLERGONOVINE 0.2 MG/ML VIAL IM PRN (06:00)
[2020-03-18] MEDS ORDERED: miSOPROStoL 200 MCG TABLET BC PRN (06:00)
[2020-03-18] MEDS ORDERED: CARBOPROST TROMETHAMINE 250 MCG/ML AMP IM ONE (06:00)
[2020-03-18 06:38] LABS: BASOPHILS % (AUTO) 0.3 %; EOSINOPHILS # (AUTO) 0.1 10^3/uL (0.0-0.7); EOSINOPHILS % (AUTO) 1.2 %; HGB - HEMOGLOBIN 13.1 g/dL (12.0-16.0); LYMPHOCYTES # (AUTO) 1.9 10^3/uL (1.5-3.5); LYMPHOCYTES % (AUTO) 17.7 %; MEAN CORPUSCULAR HGB CONC 33.9 g/dL (32.0-36.0); MEAN CORPUSCULAR VOLUME 97.5 fL (81.0-99.0); MEAN PLATELET VOLUME 10.8 fL (7.9-10.8); MONOCYTES # (AUTO) 0.6 10^3/uL (0.0-1.0); MONOCYTES % (AUTO) 5.3 %; NEUTROPHILS # (AUTO) 7.8 10^3/uL (1.5-6.6); PLT - PLATELET COUNT 224 10^3/uL (130-450); RED BLOOD COUNT 3.97 10^6/uL (4.20-5.40); RED CELL DISTRIBUTION WIDTH 12.6 % (12.0-15.0); WHITE BLOOD COUNT 10.6 x10^3/uL (4.8-10.8)
[2020-03-18] MEDS ORDERED: CITRIC ACID/SODIUM CITRATE 15 ML UDC PO ONE (07:09)
[2020-03-18] MEDS ORDERED: ROPIVACAINE 0.5% PF 20 ML AMPULE ONE (07:18)
[2020-03-18] MEDS ORDERED: ONDANSETRON 4 MG/2 ML VIAL ONE (07:18)
[2020-03-18] MEDS ORDERED: ePHEDrine 50 MG/ML VIAL IVP ONE (07:18)
[2020-03-18] MEDS ORDERED: PHENYLEPHRINE 10 MG/ML VIAL ONE (07:18)
[2020-03-18] MEDS ORDERED: SODIUM CHLORIDE 0.9% 20 ML ONE (07:18)
[2020-03-18] MEDS ORDERED: OXYTOCIN 10 UNIT/ML VIAL ONE ×3 (07:18→09:10)
[2020-03-18] MEDS ORDERED: DEXAMETHASONE 4 MG/ML VIAL ONE (07:18)
--- NOTE | 2020-03-18 07:18 | ANESTHESIA ---
Pre-Anesthesia VS, & Labs - Diagnosis Breech Presentation, failed external cephalic version - Procedure section Vital Signs: Temp Pulse Resp BP Pulse Ox 37.1 C 74 18 107/67 03/18/20 05:52 03/18/20 05:52 03/18/20 05:52 03/18/20 05:52 Height: 5 ft 7 in Weight (kg): 82.1 kg Body Mass Index: 28.3 BMI Classification: Overweight - NPO >8 hours - Is Patient ?: Yes - Lab Results Current Lab Results: Laboratory Tests 03/18/20 06:15: WBC 10.6, RBC 3.97 L, Hgb 13.1, Hct 38.7, MCV 97.5, MCH 33.0 H, MCHC 33.9, RDW 12.6, Plt Count 224, MPV 10.8, Neut # (Auto) 7.8 H, Lymph # (Auto) 1.9, [place] # (Auto) 0.6, Eos # (Auto) 0.1, Baso # (Auto) 0.0, Absolute Nucleated RBC 0.00, Nucleated RBC % 0.0 Lab results reviewed: Yes Fish Bones: 03/18/20 06:15 Home Medications and Allergies Active Medications Carboprost Tromethamine (Carboprost Tromethamine 250 Mcg/Ml Amp) 250 mcg IM Q15M PRN PRN Reason: Step 4: Hemorrhage protocol Stop: 03/22/20 21:36 Hydralazine HCl (Hydralazine Inj 20 Mg/Ml Vial) 10 mg IVP .ONCE PRN; Protocol PRN Reason: Step 9 of Labetalol protocol Stop: 03/22/20 21:40 Oxytocin/Sodium Chloride (Pitocin/Sodium Chloride) 500 mls @ 999 mls/hr IV PRN PRN; Protocol PRN Reason: POST- HEMORR PREVENTION Stop: 03/22/20 21:36 Tranexamic Acid (Tranexamic 1,000 Mg/100ml-Nacl) 1,000 mg in 100 mls @ 600 mls/hr IV .ONCE PRN PRN Reason: EBL >1200mL and within 3hr Stop: 03/22/20 21:36 Tranexamic Acid 1,000 mg/ (Sodium Chloride) 110 mls @ 660 mls/hr IV ONCE PRN PRN Reason: PER PHYSICIAN ORDER Stop: 03/20/20 05:59 Cefazolin Sodium/Dextrose (Ancef 2 Gm/50 Ml) 2 gm in 50 mls @ 100 mls/hr IV ONCE ONE Stop: 03/19/20 07:59 Lactated Ringer's (Lr) 1,000 mls @ 150 mls/hr IV .Q6H40M ANDREY Acetaminophen (Ofirmev) 100 mls @ 400 mls/hr IV ONCE ONE Stop: 03/18/20 08:14 Labetalol HCl (Labetalol 20 Mg/4 Ml Syringe) 20 - 80 mg IVP Q10M PRN; Protocol PRN Reason: SBP >160 or DBP >110 Labetalol HCl (Labetalol 20 Mg/4 Ml Syringe) 20 mg IVP .ONCE PRN; Protocol PRN Reason: Step 9 of nifedipine protocol Stop: 03/22/20 21:40 Lidocaine HCl (Lidocaine-Mpf 1% 30 Ml Vial) 30 ml ID .ONCE PRN PRN Reason: PERINEAL REPAIR Stop: 03/22/20 21:36 Methylergonovine Maleate (Methylergonovine 0.2 Mg/Ml Vial) 0.2 mg IM .ONCE PRN PRN Reason: Step 2: Hemorrhage protocol Stop: 03/22/20 21:36 Methylergonovine Maleate (Methylergonovine 0.2 Mg/Ml Vial) 0.2 mg IM ONCE PRN PRN Reason: PER PHYSICIAN ORDER Stop: 03/20/20 05:59 Misoprostol (Misoprostol 200 Mcg Tablet) 800 mcg BC .ONCE PRN PRN Reason: Step 3: Hemorrhage protocol Stop: 03/22/20 21:36 Misoprostol (Misoprostol 200 Mcg Tablet) 800 mcg BC ONCE PRN PRN Reason: per physician Stop: 03/20/20 05:59 Nifedipine (Nifedipine 10 Mg Capsule) 10 - 20 mg PO Q20M PRN; Protocol PRN Reason: SBP >160 or DBP >110 Ondansetron HCl (Ondansetron 4 Mg/2 Ml Vial) 4 mg IVP Q4H PRN PRN Reason: Nausea / Vomiting Oxytocin (Oxytocin 10 Unit/Ml Vial) 10 unit IM .ONCE PRN PRN Reason: Step one: If no IV access Stop: 03/22/20 21:36 Sodium Chloride (Sodium Chloride Flush 0.9% 10 Ml Syringe) 10 ml IVP PRN PRN PRN Reason: NEEDED PER PROVIDER ORDERS Sodium Chloride (Sodium Chloride Flush 0.9% 10 Ml Syringe) 10 ml IVP 0100,09 00,1700 ANDREY Evening [place] Oil 09/30/17 No122/Iron/Folic Acid [ Multi Tablet] 1 each PO 09/30/17 Sennosides/Docusate Sodium [Stool Softener-Laxative Tablet] 1 PO DAILY 09/30/17 Allergies/Adverse Reactions: Allergies Allergy/AdvReac Type Severity Reaction Status Date / Time No Known Drug Allergies Allergy Verified 09/30/17 02:29 Anes History & Medical History - Anesthetic History Anesthesia Complications: reports: No previous complications Family history of Anesthesia Complications: Denies Family history of Malignant Hyperthermia: Denies - Medical History Cardiovascular: reports: None Pulmonary: reports: None Gastrointestinal: reports: None Urinary: reports: None Neuro: reports: None Musculoskeletal: reports: None Endocrine/Autoimmune: reports: None Blood Disorders: reports: None Smoking Status: Never smoker - Surgical History Gynecologic: Other Exam General: Alert, Oriented x3, Cooperative, No acute distress Dental: WNL Mouth Openin Fingerbreadth Neck Mobility: Normal Mallampati classification: I Respiratory: Lungs clear, Normal breath sounds, No respiratory distress, No accessory muscle use Cardiovascular: Regular rate, Normal S1, Normal S2, No murmurs Plan Anesthesia Type: Spinal, Transverse Abdominis Plane (TAP) Block Regional Block: Per Surgeon's request for Post Op pain control Consent for Procedure(s) Verified and Reviewed: Yes Code Status: Attempt Resuscitation ASA classification: 2-Mild systemic disease Is this case an emergency?: No
[2020-03-18] MEDS ORDERED: fentaNYL 100 MCG/2 ML VIAL ONE (07:19)
[2020-03-18] MEDS ORDERED: ATROPINE ABBOJECT 1 MG/10 ML SYRINGE IVP PRN (07:21)
[2020-03-18] MEDS ORDERED: MORPHINE 2 MG/ML CARPUJECT IVP PRN (07:21)
[2020-03-18] MEDS ORDERED: HYDROmorphone 0.5 MG/0.5 ML SYRINGE IVP PRN (07:21)
[2020-03-18] MEDS ORDERED: METOCLOPRAMIDE 10 MG/2 ML VIAL IVP PRN (07:21)
[2020-03-18] MEDS ORDERED: NALOXONE 0.4 MG/ML VIAL IVP PRN (07:21)
[2020-03-18] MEDS ORDERED: ONDANSETRON 4 MG/2 ML VIAL IVP PRN (07:21)
[2020-03-18] MEDS ORDERED: fentaNYL 100 MCG/2 ML VIAL IVP PRN (07:21)
[2020-03-18] MEDS ORDERED: ePHEDrine 50 MG/ML VIAL IVP PRN (07:21)
[2020-03-18] MEDS ORDERED: SODIUM CHLORIDE 0.9% 10 ML ONE (07:31)
[2020-03-18] MEDS ORDERED: LIDOCAINE 2%-EPI 1:100000 20 ML MDV ONE (07:34)
[2020-03-18] MEDS ORDERED: BUPIVACAINE 0.5% PF 30 ML VIAL ONE (07:34)
[2020-03-18] MEDS ORDERED: LACTATED RINGERS 1,000 ML IV SCH ×2 (08:00→10:00)
[2020-03-18] MEDS ORDERED: ACETAMINOPHEN 1,000 MG/100 ML 100 ML IV ONE (08:00)
[2020-03-18] MEDS ORDERED: BUPIVACAINE 0.5% PF 30 ML VIAL SUBQ ONE ×2 (08:57)
[2020-03-18] MEDS ORDERED: LIDOCAINE 2%-EPI 1:100000 20 ML MDV SUBQ ONE ×2 (08:58)
[2020-03-18] MEDS ORDERED: SODIUM CHLORIDE FLUSH 0.9% 10 ML SYRINGE IVP SCH ×2 (09:00→17:00)
[2020-03-18] MEDS ORDERED: SODIUM CHLORIDE 0.9% 1,800 ML IV ONE (09:41)
[2020-03-18] MEDS ORDERED: OXYTOCIN/SODIUM CHLORIDE 500 ML IV PRN (09:50)
[2020-03-18] MEDS ORDERED: SODIUM CHLORIDE FLUSH 0.9% 10 ML SYRINGE IVP PRN (09:50)
[2020-03-18] MEDS ORDERED: ONDANSETRON ODT 4 MG TABLET TL PRN (09:50)
--- NOTE | 2020-03-18 09:54 | OPERATIVE REPORT ---
Operative Report - General Admit Date: 03/18/20 Procedure Date: 03/18/20 Planned Procedure: Low transverse Pre-Op Diagnosis: IUP at 39+4 wga, breech presentation Procedure Performed: Primary low transverse Post Op Diagnosis: Same and delivery of term gestation - Procedure Note Primary Surgeon: Bianca Pimentel MD Secondary Surgeon: KIAH Obrien Anesthesia Provider: GERALDINE Resendiz Anesthesia Technique: Spinal Pathology: Placenta for routine discard IV Fluids (mL): 1,800 Estimated Blood Loss (mL): 700 Urine Output (mL): 250 Indications: Patient is a 34 yo at 39+4 wga with complicated by fetus in breech presentation with failed ECV. Hx of uterine inversion with hemorrhage and retained products on conception requiring D&C after prior vaginal delivery. Findings: Vigorous female infant in breech presentation with Apgars 9/9, weight pending. Right aspect of the posterior/fundal part of the uterus had mildly adherent placenta that was manually extracted in pieces. The placental insertion site was observed and bleeding was minimal with start of pitocin. Complications: none - Other Other Information/Narrative: Risks benefits and alternatives of the procedure were discussed. Fetus was confirmed to be in breech presentation. Written informed consent was obtained. Patient was taken to the operating room where spinal anesthesia was placed and found to be adequate. She was prepped and draped in the usual sterile fashion in the dorsal supine position with a leftward tilt. Yeung catheter was in place. SCDs were in place and activated. Cefazolin 2 g IV was given as a preoperative antibiotic. Preoperative timeout was performed. A total of 20 cc of 1% lidocaine with epinephrine was injected into the suture line prior to making the incision. A Pfannenstiel incision was made in the skin with a scalpel and carried through the underlying layer of fascia in a combination of sharp and blunt dissection. The fascia was incised in the midline, and the incision was extended laterally with the Hernández scissors. The superior aspect of the fascial incision was grasped with the Renato clamps, elevated, and the underlying rectus muscles were dissected off bluntly and sharply using the Hernández scissors. Attention was then turned to the inferior aspect of the incision which in a similar fashion was grasped, tented up with Renato clamps, and the underlying rectus muscles dissected off bluntly and sharply using Hernández scissors. The rectus muscles were then in the midline. The peritoneum was identified, tented up, and entered bluntly. The peritoneal incision was extended superiorly and inferiorly with good visualization of the bladder. The bladder that blade was then inserted. A bladder flap was not created. The lower uterine segment of the uterus was identified, and incised in a transverse fashion with a scalpel. The uterus was entered bluntly. The uterine incision was extended in a craniocaudal fashion by manual stretch. The bladder blade was removed. The was delivered from from breech position with usual breech maneuvers. Baby was wrapped in a warm sterile towel. Delayed cord clamping was performed. After cessation of pulsations, the cord was clamped x2 and cut. The infant was handed off to the waiting pediatricians. The placenta was removed with manual expression and manual extraction. There was a small area of adherent placenta at the upper right posterior/fundal aspect of the uterus. The placenta fragmented and was removed in pieces. The uterus was exteriorized during the process of removing the placenta. c It was cleared of al l clots clots and debris via manual swipe using ncyclo-BidRazor x4. The placental sites was carefully observed and initial excess bleeding was minimized with addition of pitocin. The uterine incision was then repaired in a running locked fashion using 0 Vicryl suture. The incisoin was reinforced with a running imbricating layer again using 0-Vicryl suture. Excellent hemostasis was obtained. The uterus was returned to the abdomen. The gutters were cleared of all clots and debris. The pelvis was irrigated with warm normal saline. The uterine defect was well visualized in normal anatomic position it was noted again to be hemostatic. The peritoneum was then reapproximated with 2-0 Vicryl in a running fashion. The rectus muscles were then reapproximated using interrupted kwyjek-na-mjikh mello tures using 2-0 Chromic. Good hemostasis was noted. The fascia was then closed using 0 Vicryl in a running fashion starting from the left lateral edge to the midline. A second suture was used to close the fascia in a running fashion starting from the right lateral edge and meeting in the midline, agian using 0-Vicryl. The subcutaneous tissue was then irrigated and closed using 2-0 chromic in a running subcutaneous suture. Skin was closed in a running subcuticular suture using 4-0 Monocryl. Steri-Strips were applied to reinforce the incision and dressing was applied. Procedure was well-tolerated and without complication. Sponge lap and needle counts were correct x2. Patient was taken to recovery room in stable condition. KIAH Obrien, assisted with retraction, delivery of the , and suturing.
[2020-03-18] MEDS ORDERED: IBUPROFEN 600 MG TABLET PO SCH (10:00)
[2020-03-18] MEDS ORDERED: LACTATED RINGERS 1,000 ML IV ONE (10:09)
--- NOTE | 2020-03-18 10:47 | ANESTHESIA POST OP EVALUATION ---
Anesthesia Post Eval - Post Anesthesia Eval Vitals: Last Vital Signs Temp 36.6 C 03/18/20 10:30 Pulse 76 03/18/20 10:30 Resp 18 03/18/20 10:30 BP 105/66 03/18/20 10:30 Pulse Ox 100 03/18/20 10:30 CV Function Including HR & BP: positive: Stable Pain Control: positive: Satisfactory Nausea & Vomiting: positive: Negative Mental Status: positive: Baseline Respiratory Status: Airway Patent Hydration Status: Satisfactory Anesthesia Complications: positive: None
[2020-03-18] MEDS: ACETAMINOPHEN 500 MG TABLET PO SCH ×2 (11:00→20:24)
[2020-03-18] MEDS: KETOROLAC 30 MG/ML VIAL IVP SCH ×2 (12:30→17:53)
[2020-03-18] MEDS: oxyCODONE 5 MG TABLET PO PRN ×2 (16:37→20:25)
[2020-03-18 17:37] LABS: HIV RAPID SCREEN NEGATIVE (NEGATIVE)
[2020-03-18] MEDS: SIMETHICONE CHEW 80 MG TABLET PO PRN (17:59)
[2020-03-18 21:59] LABS: TRICHOMONAS VAGINALIS DNA NEGATIVE (NEGATIVE)
[2020-03-19] MEDS: KETOROLAC 30 MG/ML VIAL IVP SCH ×2 (00:06→06:08)
[2020-03-19] MEDS: oxyCODONE 5 MG TABLET PO PRN ×7 (00:16→23:52)
[2020-03-19] MEDS: ACETAMINOPHEN 500 MG TABLET PO SCH ×3 (04:12→19:49)
[2020-03-19 05:28] LABS: BASOPHILS % (AUTO) 0.3 %; EOSINOPHILS % (AUTO) 0.3 %; HGB - HEMOGLOBIN 10.9 g/dL (12.0-16.0); LYMPHOCYTES # (AUTO) 2.2 10^3/uL (1.5-3.5); LYMPHOCYTES % (AUTO) 14.5 %; MEAN CORPUSCULAR HEMOGLOBIN 33.6 pg (27.0-31.0); MEAN CORPUSCULAR HGB CONC 33.9 g/dL (32.0-36.0); MEAN CORPUSCULAR VOLUME 99.4 fL (81.0-99.0); MEAN PLATELET VOLUME 11.1 fL (7.9-10.8); MONOCYTES # (AUTO) 1.1 10^3/uL (0.0-1.0); MONOCYTES % (AUTO) 7.2 %; NEUTROPHILS # (AUTO) 11.5 10^3/uL (1.5-6.6); NEUTROPHILS % (AUTO) 76.7 %; PLT - PLATELET COUNT 194 10^3/uL (130-450); RED BLOOD COUNT 3.24 10^6/uL (4.20-5.40); RED CELL DISTRIBUTION WIDTH 12.4 % (12.0-15.0)
[2020-03-19] MEDS ORDERED: ceFAZolin 2 GM/50 ML 2 GM/50 ML BAG IV ONE (07:30)
[2020-03-19] MEDS: DOCUSATE SODIUM 100 MG CAPSULE PO SCH ×2 (08:07→19:48)
[2020-03-19] MEDS: SIMETHICONE CHEW 80 MG TABLET PO PRN ×2 (08:07→19:48)
[2020-03-19 11:47] LABS: HEPATITIS B SURFACE ANTIGEN NON-REACTIVE (NON-REACTIVE)
[2020-03-19] MEDS: IBUPROFEN 600 MG TABLET PO SCH ×2 (12:01→17:51)
[2020-03-19 14:22] LABS: HIV AG/AB 4TH GEN NON-REACTIVE (NON-REACTIVE)
--- NOTE | 2020-03-19 17:46 | PROVIDER PROGRESS NOTE ---
Subjective - Prog Note Date Prog Note Date: 03/19/20 Prog Note Time: 09:10 - Subjective Subjective: Patient overall is doing well. She has not been up and out of bed but Yeung catheter has been removed. Feeling bloated with no flatus but tolerating po wit hout N/V. Minimal bleeding. Pain well managed Objective - Vital Signs/Intake & Output Reviewed Vital Signs: Yes Vital Signs: Vital Signs x48h Temp Pulse Resp BP Pulse Ox 03/19/20 16:00 98.2 F 68 16 111/63 98 03/19/20 11:25 98.4 F 90 16 103/59 L 98 Intake & Output: Intake & Output 03/16/20 03/17/20 03/18/20 03/19/20 23:59 23:59 23:59 23:59 Intake Total 240 2600 Output Total 4300 3630 Balance -8123 -1030 - Objective General Appearance: positive: No acute distress Neck: positive: Nml inspection Respiratory: positive: No respiratory distress, Breath sounds nml Cardiovascular: positive: Regular rate & rhythm Abdomen: positive: Other (appropriately tender. FF below umbi) Skin: positive: Color nml Extremities: positive: Non-tender, No pedal edema Neurologic/Psychiatric: positive: Oriented x3 Comments/Other: Dressing with minimal serosang drainage - Lab Results Fish Bones: 03/19/20 05:20 Other Labs: Lab Results x24hrs 03/19/20 03/18/20 03/18/20 Range/Units 05:20 07:30 07:30 WBC 15.0 H (4.8-10.8) x10^3/uL RBC 3.24 L (4.20-5.40) 10^6/uL Hgb 10.9 L (12.0-16.0) g/dL Hct 32.2 L (37.0-47.0) % MCV 99.4 H (81.0-99.0) fL MCH 33.6 H (27.0-31.0) pg MCHC 33.9 (32.0-36.0) g/dL RDW 12.4 (12.0-15.0) % Plt Count 194 (130-450) 10^3/uL MPV 11.1 H (7.9-10.8) fL Neut # (Auto) 11.5 H (1.5-6.6) 10^3/uL Lymph # (Auto) 2.2 (1.5-3.5) 10^3/uL Greenlee # (Auto) 1.1 H (0.0-1.0) 10^3/uL Eos # (Auto) 0.0 (0.0-0.7) 10^3/uL Baso # (Auto) 0.0 (0.0-0.1) 10^3/uL Absolute Nucleated RBC 0.00 x10^3/uL Nucleated RBC % 0.0 /100WBC Chlam trachomat DNA PCR NEGATIVE (NEGATIVE) Hep Bs Antigen (NON-REACTIVE) HIV 1&2 Ag/Ab, 4th Gen (NON-REACTIVE) N.gonorrhoeae DNA (PCR) NEGATIVE (NEGATIVE) Group B Strep (PCR) NEGATIVE (NEGATIVE) T. vaginalis (PCR) NEGATIVE (NEGATIVE) 03/18/20 03/18/20 Range/Units 06:55 06:55 WBC (4.8-10.8) x10^3/uL RBC (4.20-5.40) 10^6/uL Hgb (12.0-16.0) g/dL Hct (37.0-47.0) % MCV (81.0-99.0) fL MCH (27.0-31.0) pg MCHC (32.0-36.0) g/dL RDW (12.0-15.0) % Plt Count (130-450) 10^3/uL MPV (7.9-10.8) fL Neut # (Auto) (1.5-6.6) 10^3/uL Lymph # (Auto) (1.5-3.5) 10^3/uL Greenlee # (Auto) (0.0-1.0) 10^3/uL Eos # (Auto) (0.0-0.7) 10^3/uL Baso # (Auto) (0.0-0.1) 10^3/uL Absolute Nucleated RBC x10^3/uL Nucleated RBC % /100WBC Chlam trachomat DNA PCR (NEGATIVE) Hep Bs Antigen NON-REACTIVE (NON-REACTIVE) HIV 1&2 Ag/Ab, 4th Gen NON-REACTIVE (NON-REACTIVE) N.gonorrhoeae DNA (PCR) (NEGATIVE) Group B Strep (PCR) (NEGATIVE) T. vaginalis (PCR) (NEGATIVE) Assessment/Plan - Problem List (1) deliv NOS-unsp Impression: POD#1: Doing well Encourage ambulation Anticipating first void Transition ot po pain meds BF going well Anticipate DC home tomorrow
[2020-03-20] MEDS: IBUPROFEN 600 MG TABLET PO SCH (03:59)
[2020-03-20] MEDS: oxyCODONE 5 MG TABLET PO PRN ×2 (03:59→08:59)
--- NOTE | 2020-03-20 07:51 | Discharge Plan ---
Discharge Plan Problem Reviewed?: Yes Disposition: Home, Self Care Condition: Good Prescriptions: Acetaminophen [Acetaminophen Extra Strength] 1,000 mg PO Q8H PRN #60 tab PRN Reason: Pain Docusate Sodium 100Mg Capsule [Colace 100Mg Capsule] 100 - 200 mg PO BID PRN #60 cap PRN Reason: Constipation Ibuprofen [Motrin] 600 mg PO Q6H PRN #60 tab PRN Reason: Pain oxyCODONE [Roxicodone] 2.5 - 5 mg PO Q4H PRN #24 tab PRN Reason: Severe Pain Diet: Regular Activity Restrictions: Additional Comments (see below) Shower Restrictions: Yes (No tub baths or hot tubs for 4 weeks) Driving Restrictions: Yes (NO DRIVING ON OXYCODONE) Additional Instructions or Follow Up instructions: Nothing in the vagina for 6 weeks: No intercourse, tampons, douching Call for: -Fever greater than 100.5 -Pain that does not improve with pain medication -Heavy bleeding in which you are soaking a pad an hour for 2 hours in a row -Incision becomes hot, hard, red, starts to open, or leaks foul smelling fluid No lifting more than 10# for 4 [address] while on narcotics Ok to shower. Let water run over the incision. Do not soap, scrub, or apply lotion. Pat dry with a clean towel or dante a hair spinner. The surgical stickers will start to peel off and you can remove them when they do. Otherwise, the provider will remove them at your one week follow-up appointment. OK to use an unscented sanitary napkin or clean washcloth to keep the incision dry if the belly folds over the incision. No Smoking: If you smoke, Please STOP! Call for help. Follow-up with: Sheri Pimentel MD [Provider Admit Priv/Credential] -
[2020-03-20 08:58] VITALS: BP 115/73
[2020-03-20] MEDS: DOCUSATE SODIUM 100 MG CAPSULE PO SCH (08:58)
[2020-03-20] MEDS: ACETAMINOPHEN 500 MG TABLET PO SCH (08:59)
[2020-03-20] MEDS ORDERED: MEASLES,MUMPS & RUBELLA VACC 0.5 ML VIAL SUBQ ONE (10:44)
--- NOTE | 2020-03-26 10:57 | DISCHARGE SUMMARY ---
"Discharge Summary Admit Date: 03/17/20 Discharge Date: 03/20/20 Discharging Provider: Loren Condition at Discharge: Good Discharge Disposition: 01 Home, Self Care - DIAGNOSES Admission Diagnoses: IUP at 39+3 wga Breech presentation Hx of uterine inversion Hx of hemorrhage with transfusion Hx of 3rd degree laceration Discharge Diagnoses with Status of Each Condition: Same and delivery of term gestation via - HPI History of Present Illness: The patient is a 34-year-old at 39+3 wga here for preoperative assessment for , Her last menstrual period was 06/16/2019 which gives an JESUS of 2020. She had an ultrasound on 07/28/2019 that showed a gestational sac within the uterus consistent with 6 weeks 1 day and a yolk sac with no pole was identified. Additional imaging was declined. She had received PNC at [facility] until about 12 weeks and then transferred to [facility]. Her past delivery was notable for a uterine inversion with concomitant hemorrhage and transfusion. She later required a D&C about 2 weeks later for retained POCs. Also had 3rd degree laceration. There was considerable discussion with recurrence risk and safety of a homebirth given this history. In the midst of this discussion, she was found to have fetus in breech presentation. She underwent an attempt at ECV, which resulted in successful turning of the baby to vertex. Unfortunately, position could not be sustained and she remains in breech presentation. For this reason, she will be proceeding with . She has significant trauma from her prior delivery. [facility] records were reviewed. Unfortunately, lab work was not included in the documentation. Also with hx of HSV, ppx not in place. - CONSULTS | PROCEDURES Procedures: Primary low transverse for breech presentation - ALLERGIES Allergies/Adverse Reactions: Allergies Allergy/AdvReac Type Severity Reaction Status Date / Time No Known Drug Allergies Allergy Verified 09/30/17 02:29 - MEDICATIONS Home Medications: Ambulatory Orders Medication Instructions Recorded Confirmed Evening [place] Oil 09/30/17 No122/Iron/Folic Acid 1 each PO 09/30/17 [ Multi Tablet] Sennosides/Docusate Sodium [Stool 1 PO DAILY 09/30/17 Softener-Laxative Tablet] Amox/Clav 875/125 [Augmentin] 1 each PO Q12H #20 tablet 12/31/18 Acetaminophen [Acetaminophen Extra 1,000 mg PO Q8H PRN #60 tab 03/20/20 Strength] Docusate Sodium 100Mg Capsule 100 - 200 mg PO BID PRN #60 cap 03/20/20 [Colace 100Mg Capsule] Ibuprofen [Motrin] 600 mg PO Q6H PRN #60 tab 03/20/20 oxyCODONE [Roxicodone] 2.5 - 5 mg PO Q4H PRN #24 tab 03/20/20 - PHYSICAL EXAM AT DISCHARGE General Appearance: positive: No acute distress Neck: positive: Nml inspection Respiratory: positive: No respiratory distress, Breath sounds nml Cardiovascular: positive: Regular rate & rhythm Peripheral Pulses: positive: 2+ Abdomen: positive: Non-tender, Other (S&NT/ND. Dressing removed and incision CDI) Extremities: positive: Non-tender, No pedal edema Neurologic/Psychiatric: positive: Oriented x3 - LABS Result Diagrams: 03/19/20 05:20 - FOLLOW UP Follow Up: 1 week follow-up - TIME SPENT Time Spent in Discharge (Minutes): 30"
== END 2020-03-20 12:15 | disposition home or self-care (01) | DRG 787 ==
LOC: FBP 05:32
PROVIDERS: ADMIT Obstetrics & Gynecology; ATTEND Obstetrics & Gynecology
PROC: 10D00Z1 Extraction of Products of Conception, Low, Open Approach (ICD-10-PCS; principal; 2020-03-18 07:30)
DX: O32.1XX0 Maternal care for breech presentation, not applicable or unspecified (principal); O98.32 Other infections with a predominantly sexual mode of transmission complicating childbirth; Z3A.39 39 weeks gestation of pregnancy; Z37.0 Single live birth; A60.09 Herpesviral infection of other urogenital tract
CPT/HCPCS: 36415; 85025; 86703; 86762; 86787; 86850; 86900; 86901; 86920; 87340; 87389; 87491; 87591; 87661; 87797; 87902; A9270; J0131; J7120

== ENCOUNTER 2020-09-17 08:00 | Outpatient (CLI) | payer BC ==
[2020-09-17 15:54] LABS: BILIRUBIN,URINE NEGATIVE (NEGATIVE); GLUCOSE, URINE (UA) NEGATIVE (NEGATIVE); KETONES,URINE (UA) TRACE mg/dL (NEGATIVE); LEUKOCYTE ESTERASE, URINE SMALL (NEGATIVE); NITRITE,URINE POSITIVE (NEGATIVE); OCCULT BLOOD,URINE SMALL (NEGATIVE); PROTEIN,URINE 100 mg/dL (NEGATIVE); UROBILINOGEN,URINE 0.2 (NORMAL) E.U./dL (NORMAL)
[2020-09-17 15:57] LABS: CLARITY,URINE CLOUDY (CLEAR)
[2020-09-17 16:32] LABS: BACTERIA,URINE Many /HPF (None Seen); SQUAMOUS EPITHELIAL CELL,UR FEW Squamous (<= Few); WBC CLUMPS,URINE PRESENT; WBC,URINE >25 /HPF (0-5)
[2020-09-17 23:28] LABS: CHLAMYDIA TRACHOMATIS DNA NEGATIVE (NEGATIVE); NEISSERIA GONORRHOEAE DNA NEGATIVE (NEGATIVE); TRICHOMONAS VAGINALIS DNA NEGATIVE (NEGATIVE)
[2020-09-18 10:07] LABS: HEPATITIS B SURFACE ANTIGEN NON-REACTIVE (NON-REACTIVE)
[2020-09-18 12:46] LABS: HEPATITIS C ANTIBODY NON-REACTIVE (NON-REACTIVE)
[2020-09-18 13:52] LABS: HIV AG/AB 4TH GEN NON-REACTIVE (NON-REACTIVE)
== END 2020-09-17 23:59 | disposition home or self-care (01) ==
LOC: LAB.S 08:00
PROVIDERS: ATTEND Emergency Medicine
DX: R30.0 Dysuria (principal); Z11.3 Encounter for screening for infections with a predominantly sexual mode of transmission
CPT/HCPCS: 36415; 81001; 86317; 86592; 86803; 87086; 87340; 87389; 87491; 87591; 87661

== ENCOUNTER 2021-01-06 12:52 | Outpatient (CLI) | payer BC ==
[2021-01-06 12:58] LABS: MUDS CUTOFF CONCENTRATIONS CUTOFF CONC BELOW:
[2021-01-06 15:25] LABS: AMPHETAMINE SCREEN,URINE NEGATIVE (NEGATIVE); BARBITURATE SCREEN,UR NEGATIVE (NEGATIVE); BENZODIAZEPINES SCREEN, URINE NEGATIVE (NEGATIVE); COCAINE SCREEN URINE NEGATIVE (NEGATIVE); METHADONE SCREEN, URINE NEGATIVE (NEGATIVE); METHAMPHETAMINES SCREEN, URINE NEGATIVE (NEGATIVE); OPIATE SCREEN, URINE NEGATIVE (NEGATIVE); OXYCODONE SCREEN, URINE NEGATIVE (NEGATIVE); PROPOXYPHENE SCREEN, URINE NEGATIVE (NEGATIVE); THC CANNABINOID SCREEN, URINE NEGATIVE (NEGATIVE); TRICYCLIC ANTIDEPRESSANT,URINE NEGATIVE (NEGATIVE)
== END 2021-01-06 12:53 | disposition home or self-care (01) ==
LOC: LAB.S 12:52
PROVIDERS: ATTEND Psychiatry & Neurology Psychiatry
DX: Z79.899 Other long term (current) drug therapy (principal)
CPT/HCPCS: 80306

== ENCOUNTER 2021-01-27 08:00 | Outpatient (CLI) | payer BC ==
[2021-01-27 21:21] LABS: BACTERIAL VAGINOSIS DNA NEGATIVE (NEGATIVE); CANDIDA GLABRATA DNA POSITIVE (NEGATIVE); CANDIDA GROUP DNA POSITIVE (NEGATIVE); CANDIDA KRUSEI DNA NEGATIVE (NEGATIVE); TRICHOMONAS VAGINALIS DNA NEGATIVE (NEGATIVE)
== END 2021-01-27 23:59 | disposition home or self-care (01) ==
LOC: LAB 08:00
PROVIDERS: ATTEND Obstetrics & Gynecology
DX: N89.8 Other specified noninflammatory disorders of vagina (principal)
CPT/HCPCS: 87661; 87801

== ENCOUNTER 2022-11-11 11:15 | Outpatient (CLI) | payer OTHER, MEDICAID ==
--- NOTE | 2022-11-11 13:25 | XRAY Report ---
PROCEDURE: Finger(s) LT INDICATIONS: SPRAIN OF LEFT RING FINGER. Injury to PIP joint of fourth digit of left hand after fall 4 months ago. TECHNIQUE: AP hand, 2 views of the fourth finger(s) acquired. COMPARISON: None. FINDINGS: Bones: Oblique minimally displaced fracture at the volar base of the fourth middle phalanx with intr a-articular extension, best seen on lateral view. There is some cortication at the fracture fragment. No dislocation. Joint spaces are preserved. No suspicious bony lesions. Soft tissues: Moderate soft tissue swelling of the fourth digit. No radiopaque foreign body. No susp icious soft tissue calcifications or masses. IMPRESSION: Oblique minimally displaced healing fracture at the volar base of the fourth middle phalanx with intr a-articular extension, best seen on lateral view. Reviewed by: Marta Huynh MD on 11/11/2022 1:24 PM PDT Approved by: Marta Huynh MD on 11/11/2022 1:24 PM PDT Station ID: [id number]
== END 2022-11-11 23:59 | disposition home or self-care (01) ==
LOC: DI.S 11:15
PROVIDERS: ATTEND Physician Assistant
DX: S62.625A Displaced fracture of middle phalanx of left ring finger, initial encounter for closed fracture (principal)

== ENCOUNTER 2022-11-29 10:42 | Outpatient (CLI) | payer OTHER, MEDICAID | END 2022-11-29 10:43 | disposition critical access hospital (66) | LOC: EMS 10:42 | DX: M54.50 Low back pain, unspecified (principal); R53.1 Weakness | CPT/HCPCS: A0425; A0429 ==

== ENCOUNTER 2022-11-29 11:44 | Emergency (ER) | payer OTHER, MEDICAID ==
--- NOTE | 2022-11-29 11:47 | ED Physician Documentation ---
PD HPI BACK PAIN - Stated complaint Stated Complaint: LOW BACK PX - History obtained from History obtained from: Patient - Additional information Additional information: 37-year-old female with no significant chronic medical conditions presents with acute lower back pain. The patient has been having some mild lower back pain recently, But denies any acute injuries. She does frequently lift her 2-year-old and a another toddler child but other than that does not routinely do any lifting twisting and denies any trauma. She states she did wear a sort of back girdle for a couple of days last week as she had diastasis recti during her recent and so she sometimes wears this. Yesterday the pain started to increase and today she could barely move due to the pain. Anytime she moves or tries to lift her legs she has acute spasms in her lower back. Its slightly more prominent on the left but present across the lower back bilaterally. She denies any saddle anesthesia, no bowel or bladder changes, she has normal sensation in her lower legs and no foot drop. She has not had any difficulty going to the bathroom. She denies any fever or chills and denies any IV drug use. Patient has never had back issues in the past, She states she tried 800mg of ibuprofen several times as well as some THC ointment that her neighbor gave her to try last night and states that that provided no relief. She had a telehealth visit this morning with a apparently an ER physician who told her to come into the ER. 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: Other - Present Medications Home Medications: Ambulatory Orders Medication Instructions Recorded Confirmed Evening [place] Oil 09/30/17 Acetaminophen [Acetaminophen Extra 1,000 mg PO Q8H PRN #60 tab 03/20/20 Strength] Ibuprofen [Motrin] 600 mg PO Q6H PRN #30 tab 11/29/22 Ibuprofen [Motrin] 800 mg PO Q6H PRN 11/29/22 Oxycodone HCl/Acetaminophen 1 each PO Q8H PRN #10 tablet 11/29/22 [Percocet 5-325 mg Tablet] Tizanidine HCl 4 mg PO Q8H PRN #30 tablet 11/29/22 - Allergies Allergies/Adverse Reactions: Allergies Allergy/AdvReac Type Severity Reaction Status Date / Time No Known Drug Allergies Allergy Verified 11/29/22 11:52 - Social History Does the pt smoke?: No Smoking Status: Never smoker Does the pt drink ETOH?: Yes Does the pt have substance abuse?: No - Immunizations Immunizations are current?: Yes PD ED PE NORMAL - Vitals Vital signs reviewed: Yes - General General: Alert and oriented X 3, No acute distress, Well developed/nourished - HEENT HEENT: Atraumatic, Moist mucous membranes - Cardiac Cardiac: RRR, No murmur - Respiratory Respiratory: No respiratory distress, Clear bilaterally - Abdomen Abdomen: Normal bowel sounds, Soft, Non tender, Non distended - Back Back: No CVA TTP, No spinal TTP, Other (Lumbar paravertebral muscle tenderness but no midline tenderness throughout the spine.) - Derm Derm: Normal color, Warm and dry, No rash Results - Vitals Vitals: Vital Signs - 24 hr 11/29/22 11/29/22 11/29/22 11:50 12:50 13:46 Temperature 37.1 C 36.3 C L Heart Rate 81 70 75 Respiratory 18 Rate Blood Pressure 137/89 H 132/82 H 130/66 O2 Saturation 99 99 99 Oxygen O2 Source Room air - Rads (name of study) No standard instances Relevant Findings:: Final report received PD Medical Decision Making - ED course Complexity details: reviewed results, considered differential, d/w patient ED course: 37-year-old female presented with lower back pain as described in HPI. Differentials considered included muscle strain, sciatica,Disc herniation. Her symptoms and exam are not consistent with cauda equina syndrome or epidural abscess or osteomyelitis. She had no trauma to the area but I did attempt to get x-ray given her pain and was reviewed by me and is negative. I do not see indication for acute MRI at this time. The patient was given 5 mg of IM diazepam as well as 7.5 mg of hydrocodone with some improvement in her symptoms. We will discharge her home with as needed pain control and muscle laxer's over the next few days. Patient advised to avoid lifting twisting bending until symptoms improve which can be up to several weeks. She should follow-up with her primary doctor next week as needed, may benefit from physical therapy. Return precautions reviewed if new or worsening symptoms. Departure - Departure Disposition: 01 Home, Self Care Clinical Impression: Lumbar radiculopathy, acute Sciatica Qualifiers: Laterality: left Qualified Code(s): M54.32 - Sciatica, left side Condition: Good Instructions: ED Exercises Lumbar Muscles, ED Spasm Back No Trauma, ED Sciatica Prescriptions: Ibuprofen [Motrin] 600 mg PO Q6H PRN #30 tab PRN Reason: Pain Oxycodone HCl/Acetaminophen [Percocet 5-325 mg Tablet] 1 each PO Q8H PRN #10 tablet PRN Reason: Pain >8 Tizanidine HCl 4 mg PO Q8H PRN #30 tablet PRN Reason: back spasms Comments: You have a strain of the lumbar muscles causing back spasms. You also have signs of sciatic irritation in the left hip. Please use moist heat, as needed tylenol and ibuprofen, avoid lifting/twisting/bending. I have prescribed a muscle relaxer and as needed Percocet to only use if absolutely necessary. You should not take more than 3000mg of tylenol from all sources (regular tylenol or Percocet) in a 24 hour period. I am prescribing a short course of narcotic pain medication for you. These are potentially dangerous and addictive medications that should be used carefully. These medications may constipate you. Take an ulqd-hhg-wpgywdn stool softener (d ocusate) twice daily with plenty of water while taking these medications. If you go 24 hours without a bowel movement, take tjuk-pdv-jzexksx miralax, per package instructions. Do not drink or drive while taking these medications. If you received narcotic or sedating medications while in the emergency department, do not drive for 24 hours. Store this medication in a safe, secure place and out of reach of children. It is a violation of federal law to give or sell this medication to another person or to use in a manner other than prescribed. The ED will not refill narcotic prescriptions, including prescriptions lost or stolen. To dispose of unwanted medications: 1. [facility]'s Office provides a drop box for medication in pill form only (no liquids) 8:00 am to 4:30 p.m. Wednesday-Wednesday in the lobby of the [facility], [address] [place] [address]. Empty pills into ziplock bag before disposal. Call [phone] for information. 2.[employer] is a free service available to all [facility] residents. Go to [email or web address] Note that many narcotic pain relievers also contain Tylenol/acetaminophen. Please ensure that your total dose of acetaminophen from all sources does not exceed 3 g (3000 mg) per day.
[2022-11-29 11:58] VITALS: O2SAT 99
[2022-11-29] MEDS ORDERED: diazePAM INJ 5 MG/ML SYRINGE IM STA (12:07)
[2022-11-29] MEDS ORDERED: HYDROcod/ACETAM 7.5 MG/325 MG TABLET PO STA (12:07)
--- NOTE | 2022-11-29 12:37 | XRAY Report ---
PROCEDURE: Lumbar Spine 2 View INDICATIONS: pain TECHNIQUE: 3 views of the lumbar spine were acquired. COMPARISON: None. FINDINGS: Bones: 5 ilg-uyo-aecetdh vertebrae are present. There is normal bony alignment. No vertebral body compression fractures. No suspicious bony lesions. Soft tissues: Overlying bowel gas pattern is normal. No suspicious soft tissue calcifications. IMPRESSION: No acute compression fracture or spondylolisthesis. Reviewed by: Jalen Kearney MD on 11/29/2022 12:35 PM PDT Approved by: Jalen Kearney MD on 11/29/2022 12:35 PM PDT Station ID: [id number]
[2022-11-29 13:52] VITALS: BP 130/66
== END 2022-11-29 14:16 | disposition home or self-care (01) ==
LOC: EDUNIT# → ED 11:44
DX: M54.16 Radiculopathy, lumbar region (principal); M54.32 Sciatica, left side
CPT/HCPCS: 72100; 96372; 99283; 99284; A9270

== ENCOUNTER 2023-04-14 09:57 | Outpatient (CLI) | payer OTHER, MEDICAID ==
--- NOTE | 2023-04-14 12:38 | Ultrasound Report ---
PROCEDURE: Pelvic w/Transvaginal INDICATIONS: OVARIAN CYST, ABD AND PELVIC PAIN TECHNIQUE: Real-time scanning was performed of the pelvic organs, with image documentation. Additional endovagi nal scanning was necessary due to incomplete visualization of the adnexal and endometrial structures by transabdominal scanning. COMPARISON: 10/02/2017 FINDINGS: Uterus: 7.6 x 3.2 x 4.5 cm. Small amount of fluid is seen in the endometrium. Combined thickness is 4 mm, within normal limits. Anteverted positioning. Ovaries: Nonenlarged ovaries bilaterally. There are small follicles. Color and spectral Doppler: flows are documented Other: No pathologic free fluid. IMPRESSION: The endometrium is nonthickened. Nonspecific fluid is seen within the endometrial cavity. The ovaries are nonenlarged, no discrete mass or significant cyst identified. Multiple follicles are seen. Reviewed by: Emmanuel Gonzalez MD on 04/14/2023 12:36 PM PST Approved by: Emmanuel Gonzalez MD on 04/14/2023 12:36 PM PST Station ID: [id number]
== END 2023-04-14 09:58 | disposition home or self-care (01) ==
LOC: DI 09:57
PROVIDERS: ATTEND Family Medicine
DX: N83.209 Unspecified ovarian cyst, unspecified side (principal)

== ENCOUNTER 2023-04-15 13:06 | Outpatient (CLI) | payer OTHER, MEDICAID ==
[2023-04-15] MEDS ORDERED: iohexoL-300 100 ML VIAL ONE (13:38)
[2023-04-15] MEDS ORDERED: iohexoL-300 100 ML VIAL IVP ONE (15:39)
--- NOTE | 2023-04-15 19:05 | CT Report ---
PROCEDURE: IVP INDICATIONS: OVARIAN CYST, ABD AND PELVIC PAIN CONTRAST: Omni 300 140ml TECHNIQUE: A [address] of the abdomen and pelvis was performed. Non-contrast and contrast images were recorded and evaluated at appropriate window settings. Images were recorded and evaluated at appropriate windo w settings. Reformats: coronal and sagittal. For radiation dose reduction, the following was used: au tomated exposure control, adjustment of convex left scoliosis. 3 interval casting with improved align ment at the tibia and fibula fractures. MA and/or kV according to patient size. COMPARISON: Correlation is made with pelvic ultrasound, 04/14/2023 FINDINGS: Image quality: Diagnostic. Urinary system: Both kidneys are normal in size. No hydronephrosis or nephrolithiasis on pre-contras t images. No solid masses or complex cysts which require follow up. The opacified renal calyces and ureters appear normal, without filling defect. Bladder wall thickness is normal, accounting for unde rdistention. No calcified bladder stones. No filling defect within the opacified bladder. OTHER Lower chest: Unremarkable. Liver: No solid mass. Diffuse fatty liver infiltration can be seen. Gallbladder and biliary tree: Within normal limits. Spleen: No splenomegaly. Pancreas: No pancreatic ductal dilation. Adrenals: No adrenal nodule. Stomach, bowel and peritoneum: No bowel distension. No pathologic free fluid. Abdominal Lymph nodes: No central or retroperitoneal adenopathy. Vessels: Unremarkable. Reproductive organs: The uterus demonstrates an unremarkable appearance for age. No adnexal masses ar e seen. Pelvic Lymph nodes: Unremarkable. Bones: No aggressive osseous abnormality. Other: There is a moderate fat-containing epigastric hernia present. IMPRESSION: No kidney stones or hydronephrosis can be seen. No renal masses or bladder masses are seen. No abnormal ovarian cysts are seen. Additional findings: Moderate fat-containing epigastric hernia Fatty liver infiltration Reviewed by: Basil Jo MD on 04/15/2023 6:04 PM [facility] Approved by: Basil Jo MD on 04/15/2023 6:04 PM [facility] Station ID: [id number]
== END 2023-04-15 13:07 | disposition home or self-care (01) ==
LOC: DI 13:06
PROVIDERS: ATTEND Family Medicine
DX: N83.209 Unspecified ovarian cyst, unspecified side (principal)